=== PATIENT | male | born 1980 | race African-American/Black ===

== ENCOUNTER 2022-11-27 22:04 | Inpatient (IN) ==
--- NOTE | 2022-11-27 23:29 | DR.EXTPAIN ---
HPI Time seen Time Seen by Provider: 11/27/22 23:29 PCP Primary Care Physician: kathy Complaint/Symptoms Chief Complaint Doctor Comments: Patient has had pain for 4 days in his buttocks.Patient presents today because he is unable to walk because of the p ain.He denies:fever,extremity weakness,extremity numbness,n,v. Chief Complaint:: pt states" I got a big abcess at the top crack of my butt. It's hurting so bad I only had it for 4 days I can't stand the pain. I can't sit down" COVID-19 Coronavirus risk:travel/contact w/high risk person: No Has patient experienced Coronavirus symptoms: No Source History Provided: Patient Mode of arrival Mode of Arrival: Ambulatory Timing Onset of Chief Complaint: 11/24/22 PMH PMH Past Medical History: Yes Past Medical History: Hypertension Past Medical History Comment: chronic back pain Past Surgical History: No Family History History of Family Medical Conditions: No Social History Does patient currently use any type of tobacco product: Yes Have you used tobacco products in the last 12 months: Yes Type of Tobacco Use: Cigarettes Does any household member use tobacco: Yes Alcohol Use: Occasionally Do you use any recreational Drugs:: No Lives With: Family Lives Where: Home Travel Risk Coronavirus risk:travel/contact w/high risk person: No Has patient experienced Coronavirus symptoms: No Infectious screening In the last 2 months have you had wt loss of >10#?: NO Have you had fever, night sweats or hemotysis?: No Have you traveled outside the country in the last 6 months?: No Isolation: Standard ROS Review of Systems Constitutional: No Symptoms Reported Eyes: No Symptoms Reported ENTM: No Symptoms Reported Respiratoy: No Symptoms Reported Cardiovascular: No Symptoms Reported Gastrointestinal/Abdominal: No Symptoms Reported Genitourinary: No Symptoms Reported Neurological: No Symptoms Reported Musculoskeletal: No Symptoms Reported and Other (perirectal induration) Integumentary: No Symptoms Reported and Other (abscess,mkd tenderness,induration perirectal) Hematologic/Lymphatic: No Symptoms Reported Endocrine: No Symptoms Reported Psychiatric: No Symptoms Reported All Other Systems: Reviewed and Negative PE Vital Signs Vitals: Vital Signs Temperature 98.2 F Pulse Rate 90 Respiratory Rate 18 Respiratory Rate 18 Respiratory Rate 18 Blood Pressure 139/98 O2 Sat by Pulse Oximetry 97 General Limitations: No Limitations General Appearance: Alert and In No Apparent Distress Head Head Exam: Normal Inspection Eyes Eye exam: Normal Appearance ENT ENT Exam: Normal Exam Neck Neck Exam: Normal Inspection Chest Chest Inspection: Normal Inspection Respiratory Respiratory Exam: Normal Lung Sounds Bilat Respiratory Exam: Bilateral: Clear to Auscultation Cardiovascular Cardiovascular Exam: Regular Rate and Normal Rhythm Abdominal Exam Abdominal Exam: Normal Inspection, Normal Bowel Sounds and Soft Extremities Extremities Exam: Normal Inspection Back Back Exam: Normal Inspection and Other (Lt gluteus and Rt gluteus richie at apex( 9cm L x 6cm W induration) extending from the Rt gluteus to left gluteus) Neurological Neurological Exam: Alert, Oriented X3 and CN II-XII Intact Psychiatric Psychiatric Exam: Normal Affect and Normal Mood Skin Skin Exam: Warm, Dry, Intact and Normal Color MDM Differential Diagnosis Differential Diagnosis: Other (perirectal abscess, Rt gluteus abscess,cellulitis) COURSE Treatment Treatment: Patient was examined.Iv access was initiated and patient was given morphine 4mg iv and zofran 4mg iv. Patient received clindamycin 600mg iv and blood cxs were drawn.Patient has recurrent pain in his perirectal region and is having pain with ambulation.Dilaudid 1 mg iv will be ordered. Discussed case with Dr Quiñonez who will admit patient to his service and will consult the general surgeon for further evaluation of perirectal abscess.WBC was wnl. [facility]OR Labs Reviewed Laboratory Results Reviewed?: Yes Result Diagrams: 11/28/22 00:48 11/28/22 00:48 Laboratory: WBC 8.8 X10^3/uL (3.6-10.0) 11/28/22 00:48 RBC 4.55 X10^6/uL (4.7-6.0) L 11/28/22 00:48 Hgb 12.8 g/dL (13.5-18.0) L 11/28/22 00:48 Hct 38.3 % (42.0-54.0) L 11/28/22 00:48 MCV 84.1 fL (80.0-100.0) 11/28/22 00:48 MCH 28.1 pg (27.0-34.0) 11/28/22 00:48 MCHC 33.5 g/dL (33.0-35.0) 11/28/22 00:48 RDW 13.5 % (11.6-16.5) 11/28/22 00:48 Plt Count 333 X10^3/uL (150.0-450.0) 11/28/22 00:48 MPV 8.0 fL (7.4-11.0) 11/28/22 00:48 Neut % (Auto) 63.1 % (42.0-75.0) 11/28/22 00:48 Lymph % (Auto) 26.6 % (21.0-51.0) 11/28/22 00:48 Harrison % (Auto) 8.2 % (0.0-13.0) 11/28/22 00:48 Eos % (Auto) 1.2 % (0.9-2.9) 11/28/22 00:48 Baso % (Auto) 0.9 % (0.2-1.0) 11/28/22 00:48 Neut # (Auto) 5.6 x10^3/uL (2.2-4.8) H 11/28/22 00:48 Lymph # (Auto) 2.3 X10^3/uL (1.3-2.9) 11/28/22 00:48 Harrison # (Auto) 0.7 x10^3/uL (0.3-0.8) 11/28/22 00:48 Eos # (Auto) 0.1 x10^3/uL (0.0-0.2) 11/28/22 00:48 Baso # (Auto) 0.1 X10^3/uL (0.0-0.1) 11/28/22 00:48 Absolute Nucleated RBC 0.1 /100WBC 11/28/22 00:48 Sodium 140 mmol/L (136-145) 11/28/22 00:48 Corrected Sodium TNP 11/28/22 00:48 Potassium 4.0 mmol/L (3.5-5.1) 11/28/22 00:48 Chloride 104 mmol/L (98-107) 11/28/22 00:48 Carbon Dioxide 28.1 mmol/L (21-32) 11/28/22 00:48 BUN 11 mg/dL (7-18) 11/28/22 00:48 Creatinine 1.02 mg/dL (0.70-1.30) 11/28/22 00:48 Est GFR (MDRD) Af Amer > 60 (>60) 11/28/22 00:48 Est GFR (MDRD) Non-Af > 60 (>60) 11/28/22 00:48 Glucose 94 mg/dL (65-99) 11/28/22 00:48 Calcium 8.4 mg/dL (8.5-10.1) L 11/28/22 00:48 Corrected Calcium TNP 11/28/22 00:48 Total Bilirubin 0.20 mg/dL (0.2-1.0) 11/28/22 00:48 AST 17 Units/L (15-37) 11/28/22 00:48 ALT 35 Units/L (12-78) 11/28/22 00:48 Alkaline Phosphatase 64 Units/L (46-116) 11/28/22 00:48 Total Protein 7.1 g/dL (6.4-8.2) 11/28/22 00:48 Albumin 3.6 g/dL (3.4-5.0) 11/28/22 00:48 Globulin 3.5 g/dL (2.5-4.5) 11/28/22 00:48 Albumin/Globulin Ratio 1.0 Ratio (1.1-2.1) L 11/28/22 00:48 Opioid Opioid Risk Tool Age (Maximo box if 16-45): Yes History of Preadolescent Sexual Abuse: No Total: 1 Total Score Risk Category: Low Risk Copyright: [facility] predicting aberrant behaviors Discharge Plan Diagnosis Discharge Problem: Perirectal abscess Discharge Plan Patient Disposition: 09 ADMITTED INPATIENT Condition: Stable Prescriptions: No Action chlorthalidone 25 mg tablet 25 mg PO QDAY amlodipine 10 mg tablet 10 mg PO QDAY lisinopril 40 mg tablet 40 mg PO QAM escitalopram oxalate 20 mg tablet 20 mg PO DAILY Health Concerns: Post Hospitalization: new medications and changes needed to prevent readmission or further decline. Pt educated and given instructions on all concerns. Plan of Treatment: Continue with present treatment and follow up plan. Pt is to keep follow up appointment as instructed and take medications as ordered. Orders to Discharge Patient Discharge Orders: Transfer (Routine); Ordered 11/28/22 Ordered By: Ashley Duffy Follow ups/Referrals Follow ups/Referrals: KIMBERLI NAVARRETE [Primary Care Provider] - 3 days Instructions Stand Alone Forms: Post Hospital Follow Up Care
[2022-11-28] MEDS ORDERED: CLEOCIN 300 MG IV PREMIX 300 MG/50 ML BAG IV ONE ×4 (00:35→03:02)
[2022-11-28] MEDS ORDERED: MORPHINE SULFATE INJ 4 MG IVP ONE (00:36)
[2022-11-28] MEDS ORDERED: ZOFRAN INJ 4 MG VIAL IVP ONE (00:36)
[2022-11-28] MEDS ORDERED: MORPHINE SULFATE INJ 4 MG ONE (00:44)
[2022-11-28] MEDS ORDERED: ZOFRAN INJ 4 MG VIAL ONE (00:45)
[2022-11-28 01:15] LABS: ALANINE AMINOTRANSFERASE 35 Units/L (12-78); ALBUMIN 3.6 g/dL (3.4-5.0); ALKALINE PHOSPHATASE 64 Units/L (46-116); ASPARTATE AMINO TRANSFERASE 17 Units/L (15-37); BLOOD UREA NITROGEN 11 mg/dL (7-18); CALCIUM 8.4 mg/dL (8.5-10.1); CARBON DIOXIDE 28.1 mmol/L (21-32); CHLORIDE 104 mmol/L (98-107); CREATININE 1.02 mg/dL (0.70-1.30); GLUCOSE 94 mg/dL (65-99); SODIUM 140 mmol/L (136-145); TOTAL PROTEIN 7.1 g/dL (6.4-8.2); eGFR NON BLACK RACES > 60 (>60)
[2022-11-28 01:16] LABS: BASOPHILS # (AUTO) 0.1 X10^3/uL (0.0-0.1); BASOPHILS % (AUTO) 0.9 % (0.2-1.0); EOSINOPHILS # (AUTO) 0.1 x10^3/uL (0.0-0.2); EOSINOPHILS % (AUTO) 1.2 % (0.9-2.9); HEMATOCRIT 38.3 % (42.0-54.0); HEMOGLOBIN 12.8 g/dL (13.5-18.0); LYMPHOCYTES # (AUTO) 2.3 X10^3/uL (1.3-2.9); LYMPHOCYTES % (AUTO) 26.6 % (21.0-51.0); MEAN CORPUSCULAR HEMOGLOBIN 28.1 pg (27.0-34.0); MEAN CORPUSCULAR HGB CONC 33.5 g/dL (33.0-35.0); MEAN CORPUSCULAR VOLUME 84.1 fL (80.0-100.0); MONOCYTES # (AUTO) 0.7 x10^3/uL (0.3-0.8); MONOCYTES % (AUTO) 8.2 % (0.0-13.0); NEUTROPHILS # (AUTO) 5.6 x10^3/uL (2.2-4.8); NEUTROPHILS % (AUTO) 63.1 % (42.0-75.0); PLATELET COUNT 333 X10^3/uL (150.0-450.0); RED BLOOD COUNT 4.55 X10^6/uL (4.7-6.0); RED CELL DISTRIBUTION WIDTH 13.5 % (11.6-16.5); WHITE BLOOD COUNT 8.8 X10^3/uL (3.6-10.0)
[2022-11-28] MEDS ORDERED: DILAUDID INJ IVP ONE (02:02)
[2022-11-28] MEDS ORDERED: NS 1,000 ML IV 1,000 ML ONE (02:04)
[2022-11-28] MEDS ORDERED: DILAUDID INJ ONE ×2 (02:04→17:07)
[2022-11-28] MEDS: NS 1,000 ML IV 1,000 ML IV SCH ×2 (02:10→21:26)
[2022-11-28] MEDS ORDERED: ZOFRAN INJ 4 MG VIAL IVP PRN (02:17)
[2022-11-28] MEDS ORDERED: DILAUDID INJ IVP PRN (02:17)
[2022-11-28 03:19] VITALS: BMI 35.6
[2022-11-28 05:20] LABS: BASOPHILS # (AUTO) 0.1 X10^3/uL (0.0-0.1); BASOPHILS % (AUTO) 0.9 % (0.2-1.0); EOSINOPHILS # (AUTO) 0.1 x10^3/uL (0.0-0.2); EOSINOPHILS % (AUTO) 1.4 % (0.9-2.9); HEMATOCRIT 38.1 % (42.0-54.0); HEMOGLOBIN 12.8 g/dL (13.5-18.0); LYMPHOCYTES # (AUTO) 2.6 X10^3/uL (1.3-2.9); LYMPHOCYTES % (AUTO) 28.5 % (21.0-51.0); MEAN CORPUSCULAR HEMOGLOBIN 28.3 pg (27.0-34.0); MEAN CORPUSCULAR HGB CONC 33.7 g/dL (33.0-35.0); MEAN CORPUSCULAR VOLUME 84.2 fL (80.0-100.0); MEAN PLATELET VOLUME 8.5 fL (7.4-11.0); MONOCYTES # (AUTO) 0.8 x10^3/uL (0.3-0.8); MONOCYTES % (AUTO) 8.7 % (0.0-13.0); NEUTROPHILS # (AUTO) 5.6 x10^3/uL (2.2-4.8); NEUTROPHILS % (AUTO) 60.5 % (42.0-75.0); PLATELET COUNT 341 X10^3/uL (150.0-450.0); RED BLOOD COUNT 4.52 X10^6/uL (4.7-6.0); RED CELL DISTRIBUTION WIDTH 13.5 % (11.6-16.5); WHITE BLOOD COUNT 9.2 X10^3/uL (3.6-10.0)
[2022-11-28 05:33] LABS: ALANINE AMINOTRANSFERASE 35 Units/L (12-78); ALBUMIN 3.6 g/dL (3.4-5.0); ALKALINE PHOSPHATASE 64 Units/L (46-116); ASPARTATE AMINO TRANSFERASE 15 Units/L (15-37); BLOOD UREA NITROGEN 10 mg/dL (7-18); CALCIUM 8.2 mg/dL (8.5-10.1); CARBON DIOXIDE 29.3 mmol/L (21-32); CHLORIDE 104 mmol/L (98-107); CREATININE 0.95 mg/dL (0.70-1.30); GLUCOSE 94 mg/dL (65-99); POTASSIUM 3.7 mmol/L (3.5-5.1); SODIUM 140 mmol/L (136-145); TOTAL PROTEIN 7.2 g/dL (6.4-8.2); eGFR NON BLACK RACES > 60 (>60)
[2022-11-28] MEDS ORDERED: PHARMACY CONSULT - POTASSIUM & MAGNESIUM XX SCH (06:00)
[2022-11-28] MEDS: K-RIDER 10 MEQ/NS 100 ML 10 MEQ/100 ML BAG IV SCH ×2 (06:19→09:20)
[2022-11-28] MEDS: ZESTRIL TAB 40 MG PO SCH ×2 (08:08→12:44)
[2022-11-28] MEDS: LEXAPRO PO SCH ×2 (08:08→12:44)
[2022-11-28] MEDS: CHLORTHALIDONE PO SCH ×2 (08:08→12:45)
[2022-11-28] MEDS: NORVASC TAB 10 MG PO SCH ×2 (08:08→12:44)
[2022-11-28] MEDS: NICOTINE PATCH TD SCH (09:19)
[2022-11-28] MEDS ORDERED: MARCAINE/EPINEPHRINE ONE (09:52)
[2022-11-28] MEDS ORDERED: ANCEF VIAL 1 GRAM ONE (09:52)
[2022-11-28] MEDS ORDERED: LR 1,000 ML IV 1,000 ML IV ONE (09:52)
[2022-11-28] MEDS ORDERED: NS 100 ML IV 100 ML ONE (09:53)
[2022-11-28] MEDS ORDERED: FENTANYL VIAL INJ 100 mcg ONE (10:08)
[2022-11-28] MEDS ORDERED: VERSED ONE (10:08)
[2022-11-28] MEDS ORDERED: DIPRIVAN VIAL 20 ML ONE (10:08)
--- NOTE | 2022-11-28 10:34 | OR.IMMED ---
IMMEDIATE POST-OP NOTE Immediate Post-Op Note Pre-Op Diagnosis: Right pilonidal abscess vs. buttock abscess Post-Op Diagnosis: large right pilonidal abscess Procedure: incision and drainage right pilonidal abscess Surgeon/Banking Attorney: Ginger Findings: as above Specimens Removed: cultures of pus obtained Complications: none Progress Notes: Return to floor for continued IV antibiotics and daily wound packing Final Diagnosis: right pilonidal abscess.
[2022-11-28] MEDS ORDERED: LEXAPRO ONE (12:35)
[2022-11-28] MEDS: ZOSYN VIAL 3.375 GRAMS 3.375 G in NS 100 ML IV 100 ML IV SCH ×2 (12:45→21:06)
--- NOTE | 2022-11-28 12:54 | DR.CONSULT ---
CONSULT Consultation for Day of: Date: 11/28/22 Chief Complaint Chief Complaint: Painful mass right posterior buttock crease Allergies Allergies Allergy/AdvReac Type Severity Reaction Status Date / Time No Known Allergies Allergy Verified 11/28/22 00:56 History of Present Illness History of Present Illness: 42 year old male with a history of pilonidal cyst requiring incision and drainage in the past presents with a painful mass to his right posterior buttock. Past Medical History Past Medical History: Hypertension Past Surgical History Surgical History: Other (incision & drainage pilonidal cyst in the past. ) Family History Family Medical History: Diabetes Mellitus, [place], Coronary Artery Disease, Heart Failure, Sudden Cardiac and Hypertension Social History Does patient currently use any type of tobacco product: Yes Have you used tobacco products in the last 12 months: Yes Type of Tobacco Use: Cigarettes Does any household member use tobacco: Yes Alcohol Use: Occasionally Drug Use: None Medications Home Medications: No Known Allergies Allergy (Verified 11/28/22 00:56) CONTINUE taking the following medications amlodipine 10 mg tablet 10 mg PO QDAY 11/28/22 [History] chlorthalidone 25 mg tablet 25 mg PO QDAY 11/28/22 [History] escitalopram oxalate 20 mg tablet 20 mg PO DAILY 11/28/22 [History] lisinopril 40 mg tablet 40 mg PO QAM 11/28/22 [History] Review of Systems Constitutional: See HPI and Other (morbidly obese) Eyes: No Symptoms Reported ENT: No Symptoms Reported Respiratory: No Symptoms Reported Cardiovascular: No Symptoms Reported Gastrointestinal: No Symptoms Reported Genitourinary: No Symptoms Reported Musculoskeletal: No Symptoms Reported Skin: See HPI Neurological: No Symptoms Reported Physical Exam Vital Signs: Vital Signs Temperature 97.7 F Temperature 98.3 F Pulse Rate [Left Brachial] 81 Pulse Rate [Left Brachial] 75 Respiratory Rate 18 Respiratory Rate 18 Blood Pressure [Left Arm] 166/98 Blood Pressure [Left Arm] 127/79 O2 Sat by Pulse Oximetry 95 O2 Sat by Pulse Oximetry 95 Oriented: Normal, Time, Person and Place Eyes: Normal Ear: Normal Nose: Normal Throat: Normal Respiratory: Clear Throughout Cardiovascular: Normal : Normal Auscultation: Bowel Sounds: Normal Palpation: Normal Tenderness: Other (tender 15 x 6 mass right buttock crease) Skin: Normal Musculoskeletal: Normal Psychiatric: Normal Mood Description: Calm Affect: Normal Speech Pattern: Clear Plan (1) Pilonidal abscess: Status: Acute Plan: Continue IV antibiotics. Plan incision and drainage of pilonidal abscess and pack wound
--- NOTE | 2022-11-28 13:10 | DR.OPNOTE ---
OP NOTE Pre-Op Diagnosis: right pilonidal abscess vs buttock abscess Post-Op Diagnosis: right pilonidal abscess Procedure Date Date Of Procedure: 11/28/22 Procedure: PROCEDURE: Incision and drainage right pilonidal abscess NARRATIVE : The patient was taken to the operative suite. He remained on the bed and placed in the left lateral position. He was given intravenous sedation supervised by myself. Time out for the procedure obtained . The right buttock prepped and draped in sterile fashion. The mass was longitudinal and fluctuant with redness. It did extend to the pilonidal area. The skin over lying it infiltrated with 0.5% Marcaine and a vertical incision made with # 15 knife . Gross purulence released . This was cultured. The wound incision was extended cephalad and caudad for total length of approximately 10 cm. There were septations of the abscess area defining this as a complex abscess. These septations were taken down with blunt dissection. Wound was irrigated with saline and packed with Kerlix dressing. It was covered with 4x4's , ABD dressing and mesh panties. He was taken back to the floor in good condition. Type of Anesthesia: Local (plus MAC) Anesthesia Comment: plus MAC Findings: as above Specimen/Pathology: cultures of the wound Type of Fluids Used:: Lactated Ringers EBL: minimal Cultures: yes Complications:: none Needle/Sponge Count:: correct Disposition/Condition: Pt. tolerated procedure without difficulty. Taken back to the floor in stable condition.
[2022-11-28] MEDS ORDERED: NS IRRIGATION* 500 ML IR ONE (14:13)
[2022-11-28] MEDS: DILAUDID INJ IVP PRN (17:10)
[2022-11-29] MEDS: NS 1,000 ML IV 1,000 ML IV SCH ×2 (04:18→20:31)
[2022-11-29] MEDS: DILAUDID INJ IVP PRN ×3 (04:23→19:19)
[2022-11-29] MEDS: ZOSYN VIAL 3.375 GRAMS 3.375 G in NS 100 ML IV 100 ML IV SCH ×3 (05:00→21:06)
[2022-11-29 05:07] LABS: BASOPHILS # (AUTO) 0.1 X10^3/uL (0.0-0.1); BASOPHILS % (AUTO) 0.6 % (0.2-1.0); EOSINOPHILS # (AUTO) 0.1 x10^3/uL (0.0-0.2); EOSINOPHILS % (AUTO) 0.5 % (0.9-2.9); HEMATOCRIT 39.4 % (42.0-54.0); HEMOGLOBIN 13.2 g/dL (13.5-18.0); LYMPHOCYTES # (AUTO) 1.1 X10^3/uL (1.3-2.9); LYMPHOCYTES % (AUTO) 9.7 % (21.0-51.0); MEAN CORPUSCULAR HEMOGLOBIN 28.2 pg (27.0-34.0); MEAN CORPUSCULAR HGB CONC 33.6 g/dL (33.0-35.0); MEAN CORPUSCULAR VOLUME 83.9 fL (80.0-100.0); MONOCYTES # (AUTO) 0.6 x10^3/uL (0.3-0.8); MONOCYTES % (AUTO) 5.1 % (0.0-13.0); NEUTROPHILS # (AUTO) 9.8 x10^3/uL (2.2-4.8); NEUTROPHILS % (AUTO) 84.1 % (42.0-75.0); PLATELET COUNT 347 X10^3/uL (150.0-450.0); RED CELL DISTRIBUTION WIDTH 13.4 % (11.6-16.5); WHITE BLOOD COUNT 11.7 X10^3/uL (3.6-10.0)
[2022-11-29 05:09] LABS: BLOOD UREA NITROGEN 6 mg/dL (7-18); CALCIUM 8.6 mg/dL (8.5-10.1); CHLORIDE 98 mmol/L (98-107); CREATININE 0.98 mg/dL (0.70-1.30); GLUCOSE 109 mg/dL (65-99); POTASSIUM 3.8 mmol/L (3.5-5.1); SODIUM 137 mmol/L (136-145); eGFR NON BLACK RACES > 60 (>60)
[2022-11-29] MEDS ORDERED: PHARMACY CONSULT - POTASSIUM & MAGNESIUM XX SCH (06:00)
[2022-11-29] MEDS ORDERED: K-DUR TAB 20 MEQ PO SCH (06:00)
[2022-11-29] MEDS ORDERED: LEXAPRO ONE (08:07)
[2022-11-29] MEDS: NORVASC TAB 10 MG PO SCH (08:28)
[2022-11-29] MEDS: NICOTINE PATCH TD SCH (08:28)
[2022-11-29] MEDS: LEXAPRO PO SCH (08:28)
[2022-11-29] MEDS: ZESTRIL TAB 40 MG PO SCH (08:28)
[2022-11-29] MEDS: CHLORTHALIDONE PO SCH (08:28)
--- NOTE | 2022-11-29 16:16 | NOTE.SOAP ---
Soap Note Note for Day of Date of Exam: 11/29/22 Subjective Data Subjective Data: POD # 1 after incision and drainage pilonidal abscess.Much less pain. Objective Data Temperature: 97.8 F Pulse Rate: 82 Respiratory Rate: 20 Blood Pressure: 139/76 O2 Sat by Pulse Oximetry: 3 Objective Data: Dressing intact pilonidal area. WBC=11.7, N o growth of wound culture. Assessment Assessment: pilonidal abscess Plan Plan: Instruct family or set him up with ER visits to daily pack wound . D/C with po antibiotics tomorrow.
[2022-11-30] MEDS: DILAUDID INJ IVP PRN (00:24)
[2022-11-30] MEDS: NS 1,000 ML IV 1,000 ML IV SCH ×2 (00:28→08:48)
[2022-11-30 04:26] VITALS: RESP 19; O2SAT 93
[2022-11-30] MEDS: ZOSYN VIAL 3.375 GRAMS 3.375 G in NS 100 ML IV 100 ML IV SCH (05:00)
[2022-11-30 05:43] LABS: BASOPHILS % (AUTO) 0.6 % (0.2-1.0); EOSINOPHILS # (AUTO) 0.2 x10^3/uL (0.0-0.2); EOSINOPHILS % (AUTO) 4.3 % (0.9-2.9); HEMATOCRIT 36.5 % (42.0-54.0); HEMOGLOBIN 12.3 g/dL (13.5-18.0); LYMPHOCYTES # (AUTO) 1.1 X10^3/uL (1.3-2.9); MEAN CORPUSCULAR HEMOGLOBIN 28.3 pg (27.0-34.0); MEAN CORPUSCULAR HGB CONC 33.7 g/dL (33.0-35.0); MEAN PLATELET VOLUME 8.2 fL (7.4-11.0); MONOCYTES # (AUTO) 0.7 x10^3/uL (0.3-0.8); MONOCYTES % (AUTO) 15.2 % (0.0-13.0); NEUTROPHILS # (AUTO) 2.7 x10^3/uL (2.2-4.8); NEUTROPHILS % (AUTO) 56.9 % (42.0-75.0); PLATELET COUNT 325 X10^3/uL (150.0-450.0); RED BLOOD COUNT 4.35 X10^6/uL (4.7-6.0); RED CELL DISTRIBUTION WIDTH 13.2 % (11.6-16.5); WHITE BLOOD COUNT 4.7 X10^3/uL (3.6-10.0)
[2022-11-30 05:46] LABS: BLOOD UREA NITROGEN 6 mg/dL (7-18); CALCIUM 8.2 mg/dL (8.5-10.1); CHLORIDE 100 mmol/L (98-107); CREATININE 0.95 mg/dL (0.70-1.30); GLUCOSE 102 mg/dL (65-99); POTASSIUM 3.7 mmol/L (3.5-5.1); SODIUM 138 mmol/L (136-145); eGFR NON BLACK RACES > 60 (>60)
[2022-11-30 06:05] LABS: PLATELET MORPHOLOGY COMMENT NORMAL (NORMAL)
[2022-11-30] MEDS ORDERED: K-DUR TAB 20 MEQ PO SCH (07:00)
[2022-11-30] MEDS ORDERED: PHARMACY CONSULT - POTASSIUM & MAGNESIUM XX SCH (07:00)
[2022-11-30] MEDS ORDERED: PERCOCET TAB 5/325 MG PO ONE (08:29)
[2022-11-30] MEDS ORDERED: LEXAPRO ONE (08:37)
[2022-11-30] MEDS: ZESTRIL TAB 40 MG PO SCH (08:42)
[2022-11-30] MEDS: CHLORTHALIDONE PO SCH (08:42)
[2022-11-30] MEDS: LEXAPRO PO SCH (08:42)
[2022-11-30] MEDS: NORVASC TAB 10 MG PO SCH (08:42)
[2022-11-30] MEDS: NICOTINE PATCH TD SCH (08:43)
[2022-11-30] MEDS ORDERED: CIPRO TAB 500 MG PO SCH (09:00)
[2022-11-30 10:14] VITALS: BP 130/90; PULSE 70; TEMP 98
== END 2022-11-30 10:40 | disposition home or self-care (01) | DRG 603 ==
LOC: ER 22:20 → MED/SURG 11-28 02:17
PROVIDERS: ADMIT Internal Medicine; ATTEND Obstetrics & Gynecology Obstetrics